=== PATIENT | female | born 1965 | race Hispanic/Latino ===

== ENCOUNTER 2024-09-15 12:44 | Emergency (ER) | payer OTHER ==
[~2024-09-15] VITALS: Ht 160 cm; Wt 74.4 kg
--- NOTE | 2024-09-15 15:31 | ERN ---
General Chief Complaint: Lower Extremity Pain/Injury Stated Complaint: POSSIBLE DVT Time Seen by MD: 13:23 Time Seen by Midlevel: 13:23 Source: patient History of Present Illness Initial Comments 58-year-old female presents to the emergency department due to indentation noted to the left tony. Patient denies any pain, trauma, injury. Able to bear weight and ambulate without any problems or pain. States she has concern for possible DVT due to recent travel yesterday. Denies significant past medical history. Allergies: Coded Allergies: Penicillins (Unverified Allergy, Unknown, 09/15/24) Past Medical History Past Medical History: No Pertinent History Past Surgical History: Cholecystectomy Surgical History Other: KNEE SCOPE, NECK SX X2 ROS Dictation Constitutional: Negative for fever,chills, and weight loss Eyes: Negative for injury, pain,redness, and discharge ENT: Negative for injury,pain or swelling Cardiovascular: Negative for chest pain, palpitations, and edema Respiratory: Negative for shortness of breath, cough, and wheezing, Abdomen/GI: Negative for abdominal pain, nausea, vomiting, diarrhea, and c onstipation Back: Negative for injury and pain : Negative for painful urination, bleeding or discharge MS/Extremity: Positive for left lower extremity indentation Negative for injury and deformity Skin: Negative for rash, and discoloration Neuro: Negative for headache, weakness, numbness, tingling, and seizure Psych: Negative for suicide ideation, homicidal ideation, and hallucinations Physical Exam Physical Exam Dictation General: awake, alert, no acute distress Head/Face: Normocephalic, atraumatic Eyes: PERRL, EOMI, normal conjunctiva ENT: oral cavity clear, oral mucosa moist Neck: Supple, normal range of motion Cardiovascular: RRR, normal S1/S2 Respiratory: CTAB, no respiratory distress, no rales or wheezes Skin: Warm, dry, normal turgor, no rash MS/Extremity: Pulses equal, no cyanosis, neurovascular intact, FROM. Mild t enderness on palpation to the anterior left lower extremity (tony), no swelling, no deformities, in no ecchymosis, no erythema Neuro: COAx4, GCS 15, strength 5/5, CN 2-12 intact, normal cerebellar exam, normal gait, Psych: Normal behavior, mood, and affect normal Results EKG/XRAY/US/CT/MRI X-RAY Comment REASON: pain ORDERING PHYSICIAN: DEREK CABRERA PROCEDURE: TIBFIB LT - TIBIA/FIBULA 2VWS LT TIBIA/FIBULA 2VWS LT HISTORY: Pain COMPARISON: None TECHNIQUE: 2 images of the left tibia and fibula were obtained. FINDINGS: There is no acute displaced fracture or dislocation. Mild degenerative changes are seen. IMPRESSION: 1. Findings as described above. DICTATED BY: ROBERTO CARLOS VAZQUEZ MD DATE: 09/15/24 1531 Ultrasound Comment REASON: LLE pain ORDERING PHYSICIAN: DEREK CABRERA PROCEDURE: VENOUS UNI - US VENOUS DOPPLER UNILATERAL US VENOUS DOPPLER UNILATERAL HISTORY: Left lower leg pain COMPARISON: None TECHNIQUE: Left lower extremity venous Doppler ultrasound study was performed. FINDINGS: The left common femoral, femoral, popliteal, and posterior tibial veins are visualized. Normal flow with augmentation and compressibilities are demonstrated. Left greater saphenous vein is patent. IMPRESSION: 1. No evidence of deep venous thrombosis is seen. DICTATED BY: ROBERTO CARLOS VAZQUEZ MD DATE: 09/15/24 1527 MDM MDM: Differential diagnosis: DVT, fracture, sprain, strain Rationale: 58-year-old female presents to the emergency department due to indentation noted to the left tony. Patient denies any pain, trauma, injury. Able to bear weight and ambulate without any problems or pain. States she has concern for possible DVT due to recent travel yesterday. Denies significant past medical history. Per physical examination patient is in no acute distress, nonlabored breathing, no swelling, no deformity, neurovascularly intact, mild tenderness to palpation of the anterior left tony. Venous ultrasound obtained negative for DVT. X-rays obtained of the tibia and fibula with no acute abnormalities. Patient was educated on findings and diagnosis. Advised to follow up with PCP. Return to the emergency department if any worsening symptoms. Patient verbalized understanding. Patient stable for discharge. There are no social concerns with this patient. I independently interpreted the test that were performed, results were reviewed by me and considered findings on radiology if ordered. Medical management and examination interpretation discussions were had by me with other qualified healthcare professionals as indicated for the patient's care. ED Course Orders Procedure Category Date Status Time Us Venous Doppler US 09/15/24 Resulted Unilateral 13:33 Tibia/Fibula 2vws Lt RAD 09/15/24 Resulted 13:33 Vital Signs Date Time Temp Pulse Resp B/P (MAP) Pulse Ox O2 Delivery O2 Flow Rate FiO2 09/15/24 15:33 98.1 73 18 133/78 99 Room Air* 0 21 09/15/24 14:52 98.4 68 16 141/93 100 Room Air* 0 21 09/15/24 13:17 97.9 74 18 169/106 100 0 DX & DISP Disposition: Discharge Departure Impression: Primary Impression: Wellness examination Condition: Stable Additional Instructions: Discharge home. Rest. Follow up with primary care in 24 hours. Return to the ER for any acute changes or worsening symptoms. If any medications were prescribed take as directed. Okay to continue home medications unless otherwise discussed during your visit in the emergency room today. Patient was also advised to follow-up with primary care physician in 1 to 2 days for continued monitoring. Referrals: SELF,REFERRAL (PCP) I performed the substantive portion of the visit. I have reviewed and personally made and approve the management plan that is documented in the notes by myself or the [facility]. I acknowledge full responsibility for the patient's management plan. DEREK CABRERA September 15, 2024 15:31
[2024-09-15 15:33] VITALS: BP 133/78; PULSE 73; RESP 18; TEMP 98; O2SAT 99
--- NOTE | 2024-09-15 15:34 | HMCIMG ---
TIBIA/FIBULA 2VWS LT HISTORY: Pain COMPARISON: None TECHNIQUE: 2 images of the left tibia and fibula were obtained. FINDINGS: There is no acute displaced fracture or dislocation. Mild degenerative changes are seen. IMPRESSION: 1. Findings as described above.
== END 2024-09-15 15:42 | disposition home or self-care (01) ==
LOC: EDH 12:44
DX: M79.662 Pain in left lower leg (principal); Z88.0 Allergy status to penicillin; Z90.49 Acquired absence of other specified parts of digestive tract
CPT/HCPCS: 73590; 93971; 99284